=== PATIENT | male | born 2000 | race Caucasian/White ===

== ENCOUNTER 2021-08-20 03:56 | Emergency (ER) | payer SELFPAY ==
[2021-08-20 04:00] VITALS: BP 143/83; PULSE 68; RESP 16; TEMP 36.5; O2SAT 97; BMI 23.8
--- NOTE | 2021-08-20 04:00 | DI.RAD.S_ITS ---
PROCEDURE: XR ABDOMEN 1V INDICATIONS: constipation TECHNIQUE: One view of the abdomen acquired. COMPARISON: None. FINDINGS: Surgical changes and devices: None. Bowel: Bowel gas pattern is normal. Moderate fecal debris in the right colon Soft tissues: No suspicious abdominal calcifications. Visualized solid organ contours appear normal in size. Bones: No suspicious bony lesions. IMPRESSION: Moderate fecal debris in the right colon. No obstruction. Approved by: Loy Campos M.D. on 08/20/2021 at 6:09
--- NOTE | 2021-08-20 04:23 | ED.GENADULT ---
HPI - General Adult General Chief complaint: Abdominal Pain Stated complaint: abd pain/constipated x4 days Time Seen by Provider: 08/20/21 03:59 Source: patient Mode of arrival: Ambulatory Limitations: no limitations History of Present Illness HPI narrative: Patient is a 21-year-old male. Several days ago he had some issues with constipation. He did not take anything for it but was able to have bowel movements. He is now having bowel movements that he states are still fairly hard. He has also developed right lower quadrant abdominal pain over the past 24-48 hours. No fevers. No nausea vomiting. He contacted a clinic where he was once seen had talked with the provider there who advised that he come to the emergency department for evaluation. He denies any urinary symptoms. Related Data Allergies Allergy/AdvReac Type Severity Reaction Status Date / Time amoxicillin [AMOXICILLIN] Allergy Unknown Verified 07/18/18 18:11 Review of Systems Constitutional Constitutional: Denies fever(s) Gastrointestinal Gastrointestinal: Reports as per HPI and Reports system reviewed and no additional complaints, except as documented Genitourinary Genitourinary: Reports system reviewed and no additional complaints, except as documented and Reports as per HPI Integumentary/Breasts Skin/Breast: Reports system reviewed and no additional complaints, except as documented Hematologic/Lymphatic On Anticoagulants: No Allergic/Immunologic Allergic/Immunologic: Reports system reviewed and no additional complaints, except as documented Patient History Social History Smoking Status: Former smoker Smoking Status: Former smoker Substance Use Type: marijuana Exam Initial Vital Signs Initial Vital Signs: Vital Signs Temperature 97.7 F 08/20/21 04:00 Pulse Rate 68 08/20/21 04:00 Respiratory Rate 16 08/20/21 04:00 Blood Pressure 143/83 H 08/20/21 04:00 Pulse Oximetry 97 08/20/21 04:00 Const General: cooperative and comfortable Limitations: mental status not altered HENMT Head: normal to inspection and normocephalic Resp Effort & Inspection: normal respiratory effort Cardio Rate: regular rate GI Inspection: non-distended Palpation: soft, No firm, No guarding, No rigid and tender (Right lower quadrant without rebound or guarding) Back/Spine/Pelvis Back: normal to inspection Skin General: no rashes or lesions noted Neuro General: patient alert, patient awake and moves all extremities Extrem General: capillary refill normal Psych Appearance: grossly normal and well kempt Course Orders Ordered: ED Orders 08/20/21 04:00 XR abdomen 1V Stat Vital Signs Vital signs: Vital Signs - 8 hr 08/20/21 04:00 Temperature 97.7 F Pulse Rate 68 Respiratory Rate 16 Blood Pressure 143/83 H Pulse Oximetry 97 Medical Decision Making Imaging Data Abdominal x-ray: Radiologist's Impression: Right colonic constipation MDM Narrative Medical decision making narrative: Patient has a very benign exam. Is afebrile. The rest of his vital signs are unremarkable as well. The x-ray does show right-sided colonic constipation which very well could explain his presenting symptoms. Had a discussion with him regarding options to include obtaining labs and a CT scan for definitive diagnosis have appendicitis or other potential etiology verses holding on that workup for now and proceeding with conservative measures to include a good bowel regimen to because of the right-sided findings on the x-ray. We did discuss that he potentially could be discharged with appendicitis and could have the return of his symptoms. He expressed understanding of this. He would like to wait on any further workup for now. He will return if his symptoms worsen. He was given return precautions. He expressed understanding and agreement. Discharge Plan Departure Patient Disposition: Home Clinical Impression: Abdominal pain, Constipation Instructions: DI for Constipation Activity Restrictions/Additional Instructions: I do recommend that you increase your fluid intake. I would also recommend that you start taking a stool softener and if this does not work you can consider starting a laxative. These medications can be purchased [id number]. If your symptoms worsen or you develop fevers that you do need to return to the emergency department for further evaluation. Referrals: Suhas Hobbs MD [Primary Care Provider] -
[2021-08-20 05:28] VITALS: BP 98/60; PULSE 68; RESP 16; O2SAT 98
== END 2021-08-20 05:31 | disposition home or self-care (01) ==
PROVIDERS: Emergency Provider Emergency Medicine; Family Provider Pediatrics; PCP Pediatrics
DX: R10.31 Right lower quadrant pain (principal); K59.00 Constipation, unspecified
CPT/HCPCS: 74018; 99281; 99283

== ENCOUNTER 2022-06-04 22:20 | Emergency (ER) | payer OTHER, MEDICAID, SELFPAY ==
[2022-06-04 22:32] VITALS: BP 126/79; PULSE 95; RESP 22; TEMP 37.9; O2SAT 100; BMI 24.3
[2022-06-04 23:25] LABS: Influenza A - CEPHEID Flu A POSITIVE (NEGATIVE); Influenza B - CEPHEID Flu B NEGATIVE (NEGATIVE); Respiratory Syncytial Virus Negative (Negative)
[2022-06-04 23:28] LABS: COVID-19 CEPHEID 4-PLEX PCR Negative (Negative)
[2022-06-04] MEDS: IBUPROFEN 400 MG TABLET 800 MG PO (23:48)
--- NOTE | 2022-06-04 23:49 | ED.URI ---
HPI - URI/Sore Throat General Chief Complaint: Shortness of Breath/Dyspnea Stated Complaint: Sick/Cough/SOB/Chest Congestion Time Seen by Provider: 06/04/22 23:43 Source: patient Mode of arrival: Ambulatory History of Present Illness HPI Narrative: Patient is a healthy 22-year-old male who presents with body aches fever ongoing for last 2 days. He had some chest pain yesterday but chest pain is gone now. He is noted to be febrile here in the ED. Related Data Allergies Allergy/AdvReac Type Severity Reaction Status Date / Time amoxicillin [AMOXICILLIN] Allergy Unknown Verified 07/18/18 18:11 Review of Systems Review of Systems Narrative: GENERAL: See HPI HEENT: Denies throat pain RESPIRATORY: Denies dyspnea, cough, wheezing CARDIOVASCULAR: Denies chest pain, palpitations GASTROINTESTINAL: Denies nausea, vomiting MUSCULOSKELETAL: Denies extremity pain, injury SKIN: No rash, no laceration, no pruritus NEUROLOGIC: Denies weakness, dizziness, headache, numbness 8 point review of systems is negative except for those stated above and HPI Patient History Social History Smoking Status: Never smoker Smoking Status: Never smoker Substance Use Type: marijuana Exam Initial Vital Signs Initial Vital Signs: Vital Signs Temperature 100.3 F H 06/04/22 22:32 Pulse Rate 95 H 06/04/22 22:32 Respiratory Rate 22 06/04/22 22:32 Blood Pressure 126/79 06/04/22 22:32 Pulse Oximetry 100 06/04/22 22:32 Oxygen Delivery Method 06/04/22 22:32 GENERAL: Alert 22-year-old male appears to not feel well but is in no acute distress HEENT: Head atraumatic,EOMI, pupils reactive, face symmetric, no meningeal signs CARDIOVASCULAR: Regular rate and rhythm without murmurs, rubs or gallops. RESPIRATORY: Breath sounds equal bilaterally, no wheezes rales or rhonchi. EXTREMITIES: Normal range of motion, no clubbing or edema. Neurovascularly intact NEUROLOGICAL: Alert and oriented x4. SKIN: Warm, dry, no laceration, no petechiae, no rashes or lesions. Course Orders Ordered: ED Orders 06/04/22 22:44 Covid-19 + FLU A/B + RSV - PCR Stat Discontinued Medications Ibuprofen (Ibuprofen 400 Mg Tablet) 800 mg PO NOW ONE Stop: 06/04/22 23:44 Last Admin: 06/04/22 23:48 Dose: 800 mg Documented By: TATY Vital Signs Vital signs: Vital Signs - 8 hr 06/04/22 22:32 Temperature 100.3 F H Pulse Rate 95 H Respiratory Rate 22 Blood Pressure 126/79 Pulse Oximetry 100 Oxygen Delivery Method Room Air MDM - URI/Sore Throat Lab Data Labs: Lab Results 06/04/22 Range/Units 22:44 SARS-CoV-2 (PCR) Negative (Negative) Influenza A (RT-PCR) Flu a positive H (NEGATIVE) Influenza B (RT-PCR) Flu b negative (NEGATIVE) RSV (PCR) Negative (Negative) MDM Narrative Medical decision making narrative: Patient has low-grade fever. Positive for influenza A. Overall appears well at this time no need for any sort of further workup Discharge Plan Departure Patient Disposition: Home Clinical Impression: Influenza A Instructions: DI for Influenza -- Adult Activity Restrictions/Additional Instructions: *You have been diagnosed with influenza a *What to do: Increase fluids as tolerated fever control with Tylenol or Motrin as needed *Continue to take medications as directed Motrin 600 mg every 6 hours if needed for fever Tylenol 1000 mg every 6 hours if needed for fever *Follow up with your primary care provider in 2-3 days or call [phone] *Return to ER if you should have increasing shortness of breath pain not tolerating fluids or any new, worsening or concerning symptoms Referrals: Miscellaneous,Doctor, [Primary Care Provider] - Visit Report Forms: Patient Portal/API
== END 2022-06-05 00:01 | disposition home or self-care (01) ==
PROVIDERS: Emergency Provider Emergency Medicine; Family Provider Pediatrics
DX: J10.1 Influenza due to other identified influenza virus with other respiratory manifestations (principal); Z20.822 Contact with and (suspected) exposure to COVID-19
CPT/HCPCS: 0241U; 99282; 99283